=== PATIENT | male | born 1950 | race Caucasian/White ===

== ENCOUNTER → 2018-04-20 | Day surgery (SDC) | payer OTHER ==
[2018-03-16 09:52] VITALS: Ht 177.8 cm; Wt 100.0 kg
[~2018-04-20] VITALS: Ht 177.8 cm; Wt 100.0 kg
[~2018-04-20] MED LIST: 500ML BSS 0.3ML EPI 1:1000PF IRRIG ONE; ACETAMINOPHEN 325 MG TAB PO PRN; AMVISC PLUS 0.8ML SYRINGE INT OCU ONE; ASPI81TA28 PO; ATOR-24 PO; ATROPINE SULFATE 0.1 MG/ML 5ML SYR IV PRN; BSS FLUSH ONE; EpHEDrine SULFATE INJ 50 MG/ML AMP IV PRN; EpINEphrine INJ 1MG/ML AMP 1 MG/ML AMP ONE; GLC/500 PO; LACTATED RINGER'S 1000ML 500 ML IV SCH; LIDOCAINE 3.5% OPH GEL PER APPLICATION CHARGE ONE; LIDOCAINE HCL 1% MPF 2 ML VIAL ONE; LISI-729 PO; MIDAZOLAM HCL 1 MG/ML 2ML VIAL ONE; MULT-506 PO; OCUCOAT 1 ML SOLN IO ONE; OMEG10007 PO; POVIDONE-IODINE OP SOLN 30 ML BTL ONE; PROPARACAINE 0.5% OP SOLN PER DROP CHARGE OPL SCH; TOBRAMYCIN/DEXAMETHASONE OPH OINT PER APPLN CHARGE ONE; WARF5TAB7 PO
[2018-04-20] MEDS: PHENYLEPHRINE HCL 2.5% OP SOLN PER DROP CHARGE OPL SCH ×2 (11:27→11:32)
[2018-04-20] MEDS: TROPICAMIDE 1% OP SOLN PER DROP CHARGE OPL SCH ×2 (11:28→11:33)
[2018-04-20] MEDS: CYCLOPENTOLATE HCL 1% OP SOLN PER DROP CHARGE OPL SCH ×2 (11:29→11:34)
[2018-04-20] MEDS: KETOROLAC 0.5% OP SOLN PER DROP CHARGE OPL SCH ×2 (11:30→11:35)
[2018-04-20] MEDS: GATIFLOXACIN OP SOLN PER DROP CHARGE OPL SCH ×2 (11:31→11:41)
--- NOTE | 2018-04-20 11:57 | History & Physical Bridge - [place] ---
H&P Re-Evaluation Bridge Note: I have examined the patient, reviewed the History & Physical and in the interval since the performance of the History & Physical I have noted the following changes of clinical significance: Diagnosis: Left Cataract Procedure: Left Cataract Removal with Lens Implant No changes noted
--- NOTE | 2018-04-20 12:30 | [facility] Operative Report ---
Operative Report Date of Service Apr 20, 2018. Operative Report 1. PREOPERATIVE DIAGNOSIS: Cataract of the left eye. 2. POSTOPERATIVE DIAGNOSIS: Same. 3. PROCEDURE: Phacoemulsification with intraocular lens implantation of the left eye. SURGEON: Dr. Chris Laura. ANESTHESIA: Topical Lidocaine gel, 1% Non- Preserved intracameral Lidocaine, and monitored intravenous sedation. INDICATIONS FOR THE PROCEDURE: The patient is a 67 - year-old male with a history of cataract of the left eye causing significant visual impairment. The details of the proposed procedure were explained to the patient who asked appropriate questions and following discussion of all risks, benefits and alternatives agreed to have the procedure done. 4. OPERATION AND FINDINGS: DESCRIPTION OF PROCEDURE: After informed consent was obtained, the patient was brought to the Operating Room at the [facility]. The patient was placed in a supine position and then the left eye was prepped and draped in the usual sterile fashion for intraocular surgery. A drop of topical Lidocaine gel was placed in the operative eye. A wire lid speculum was then placed in the fornices. A corneal paracentesis was then created temporally. The Non-Preserved Lidocaine was then instilled into the anterior chamber. The anterior chamber was then pressurized with viscoelastic. A 2.0 mm clear corneal incision was then created temporally. A cystotome was inserted into the anterior chamber and used to create a tear in the anterior lens capsule. This capsular tear was then used to create a small flap and the flap was dragged in a counterclockwise direction in order to create a continuous curvilinear capsulorrhexis. Hydrodissection was accomplished with balanced salt solution. Phacoemulsification of the lens nucleus was then performed in a standard [id number] technique. The phaco time was 21 seconds with an average power of 15 %. The remaining cortical material was removed using irrigation aspiration. The capsular bag was then filled with viscoelastic. A [employer] MX60E +08.0 diopters lens was then loaded into the injector and injected into the capsular bag. The remaining viscoelastic was removed with the irrigation aspiration handpiece. The wound was hydrated and then checked and found to be watertight. The intraocular pressure was checked and found to be adequate. The wire lid speculum was removed and the patient's face was cleaned and dried. TobraDex ointment was placed in the inferior fornix. The patient was discharged to the Recovery Room having tolerated the procedure well. There were no complications. The patient will be seen tomorrow in the office for follow-up. I attest to the content of the Intraoperative Record and any orders documented therein. Any exceptions are noted below.
--- NOTE | 2018-04-20 12:31 | Discharge Instructions-SurgCtr ---
Discharge Instructions Date of Service Apr 20, 2018. Visit Reason for Visit: Cataract Left Eye Discharge Discharge Diagnosis / Problem: cataract Discharge Goals Goal(s): Improve function Activity Recommendations Activity Limitations: per Instructions/Follow-up section Anesthesia . Post Anesthesia Instructions: If you have had General Anesthesia or IV Sedation: * Do not drive today. * Resume driving when surgeon permits. * Do not make important decisions or sign legal documents today. * Call surgeon for: 1. Temperature elevations greater than 101 degrees F. 2. Uncontrollable pain. 3. Excessive bleeding. 4. Persistent nausea and vomiting. 5. Medication intolerance (nausea, vomiting or rash). * For nausea and vomiting use only clear liquids such as: tea, soda, bouillon until nausea subsides, then gradually increase diet as tolerated. * If you have any concerns or questions, call your surgeon's office. If physician is unavailable and it is an emergency, call 911 or go to the nearest emergency room. . Diet Recommendations Home Diet: resume previous diet Procedures Procedures Performed: Left Cataract Phacoemulsification With Intraocular Lens Implant Pending Studies Studies pending at discharge: no Medical Emergencies . Who to Call and When: Medical Emergencies: If at any time you feel your situation is an emergency, please call 911 immediately. . Non-Emergent Contact Non-Emergency issues call your: [facility] . . "Provider Documentation" section prepared by Chris Laura. .
[2018-04-20 12:46] VITALS: TEMP 36.3
[2018-04-20 13:02] VITALS: BP 129/78; PULSE 54; O2SAT 95
--- NOTE | 2018-04-20 13:06 | Anesthesia Progress Nt - [facility] ---
Anesthesia Post Op Note Date & Time Apr 20, 2018 at 13:06 Vital Signs Pain Intensity: 0 Vital Signs Past 12 Hours Date Time Temp Pulse Resp B/P (MAP) Pulse Ox O2 Delivery O2 Flow Rate FiO2 04/20/18 13:02 54 16 129/78 (95) 95 Room Air 04/20/18 12:46 36.3 65 16 118/71 (87) 94 Room Air 04/20/18 11:20 37.1 71 16 163/103 (123) 96 Room Air Notes Mental Status: alert / awake / arousable, participated in evaluation Pt Amnestic to Procedure: Yes Nausea / Vomiting: adequately controlled Pain: adequately controlled Airway Patency, RR, SpO2: stable & adequate BP & HR: stable & adequate Hydration State: stable & adequate Anesthetic Complications: no major complications apparent
== END | disposition home or self-care (01) ==
LOC: X.SURG 10:38
PROVIDERS: ATTEND Ophthalmology
DX: E11.36 Type 2 diabetes mellitus with diabetic cataract (principal); H26.9 Unspecified cataract; I10 Essential (primary) hypertension; E78.5 Hyperlipidemia, unspecified; I25.10 Atherosclerotic heart disease of native coronary artery without angina pectoris; Z68.31 Body mass index [BMI] 31.0-31.9, adult; E66.9 Obesity, unspecified; Z86.008 Personal history of in-situ neoplasm of other site; Z85.820 Personal history of malignant melanoma of skin; Z79.84 Long term (current) use of oral hypoglycemic drugs; Z79.01 Long term (current) use of anticoagulants; Z79.82 Long term (current) use of aspirin; Z79.899 Other long term (current) drug therapy; Z88.0 Allergy status to penicillin

== ENCOUNTER 2019-06-29 11:16 | Observation (INO) ==
--- NOTE | 2019-06-29 12:47 | Pre Anesthesia Assessment ---
Date of Service June 29, 2019 Pre Sedation Assessment Vital Signs Temp Pulse Resp BP Pulse Ox 06/29/19 11:53 36.8 C 65 18 141/96 H 98 Cardiovascular RRR, no murmur, no edema Respiratory normal respiratory effort, lungs clear to auscultation Pre-Sedation Airway Assessment Smoking Status: Never smoker Short, Thick Neck: No Thyromental Distance: > or= 3.5 Finger Breadths Oral Cavity: + WNL Mallampati Class: III ASA: ASA3 NPO Status Date of Last Intake of Fluids: 06/28/19 Date of Last Intake of Solid Food: 06/28/19 Procedure Planning Contraindications for Sedation: none Current Medications Reviewed: Yes Notes The planned sedation has been discussed with the patient. Informed Consent was obtained. I have identified the patient, determined the appropriateness of sedation and have assessed the patient immediately prior to the procedure. All medicine(s) and interventions are by my order.
--- NOTE | 2019-06-29 12:47 | History & Physical Bridge Note ---
Date of Service June 29, 2019 History & Physical Bridge Note I have examined the patient, reviewed the History & Physical and in the interval since the performance of the History & Physical I have noted the following changes of clinical significance: no changes noted
[2019-06-29] MEDS ORDERED: LIDOCAINE HCL 1% 20 ML VIAL ONE (13:20)
[2019-06-29] MEDS ORDERED: MIDAZOLAM HCL 5 MG/ML 1 ML VIAL ONE ×2 (13:20→15:09)
[2019-06-29] MEDS ORDERED: BACITRACIN INJ 50,000 UNIT VIAL ONE (13:20)
[2019-06-29] MEDS ORDERED: fentaNYL citrate 100 MCG/2 ML VIAL ONE ×2 (13:20→14:51)
[2019-06-29] MEDS ORDERED: BUPIVACAINE 0.25% 30 ML VIAL ONE (13:20)
[2019-06-29] MEDS ORDERED: OXYCODONE/ACETAMINOPHEN 5mg/325mg TAB PO PRN (15:52)
[2019-06-29] MEDS ORDERED: ACETAMINOPHEN 325 MG TAB PO PRN (15:52)
--- NOTE | 2019-06-29 15:57 | Post Anesthesia Assessment ---
Date of Service June 29, 2019 Post Sedation Assessment Vital Signs Temp Pulse Resp BP Pulse Ox 06/29/19 11:53 36.8 C 65 18 141/96 H 98 Recovery Score Activity: Moves 4 extremities Respiration: Deep Breath/Cough Circulation: +/-20% PreAnes Value Consciousness: Fully Awake Oxygen Saturation: > 92% On Room Air Discharge Sedation Level of Care: Fast Track Phase II Post Sedation Plan On clinical assessment, the patient appears to have tolerated the sedation without complications. Patient is recovering as anticipated. Patient will continue to be monitored by nursing and may be discharged when sedation discharge criteria are met per below protocol. Upon Completions of procedure and additional 15 minutes continue every 5 minute vital signs and the P.A.R. score; then discharge to a Phase I or Fast Track to Phase II per the following guidelines: * Discharge Patient to appropriate Phase II area if PAR is 8 or greater or return to pre- procedure baseline. The post - procedure orders will be as directed. * If PAR score is less than 8 or not return to pre-procedure baseline then patient will follow Phase I monitoring till PAR is reached for Phase II. The Phase I may be done in procedure room or may call to secure a Phase I area. * If naloxone or flumazenil are used for reversal, hold in Phase I for continued monitoring from when last reversal dose was given for a minimum of 60 minutes or longer pending the nurse and/or physician discretion of patient condition before discharge to Phase II. Please call the Sedation Physician to re-evaluate and complete post-note for discharge to Phase II area. Do NOT discharge from procedure sedation or Phase 1 until post- sedation evaluation note is complete by procedure /sedation MD Sedation Discharge Instructions to be given to the patient at discharge to home.
--- NOTE | 2019-06-29 15:58 | Operative Report ---
Post Operative Report Pre & Post Diagnosis intermittent 2:1 high degree AV block Operation Date: 06/29/19 13:00 <No data on this case meets the specified criteria> I identified the patient and participated in the time-out.: Yes Procedure His Bundle Pacemaker with EGM intracardiac mapping of HIS bundle Operation Date: 06/29/19 13:00 <No data on this case meets the specified criteria> Surgeon Maribell Patino, DO Tow Mate none Estimated Blood Loss 25 Findings Consistent with Post-Op Diagnosis Specimens none Description of Procedure see official report I attest to the content of the Intraoperative Record and any orders documented therein. Any exceptions are noted below.
[2019-06-29 17:21] LABS: Prothrombin Time 19.4 Seconds (9.0-12.0)
[2019-06-29] MEDS: LISINOPRIL 5 MG TAB PO SCH (18:07)
[2019-06-29] MEDS ORDERED: WARFARIN SOD 5 MG TAB PO SCH (19:00)
[2019-06-29] MEDS: METFORMIN HCL 500 MG TAB PO SCH (20:16)
[2019-06-30 07:07] VITALS: BP 137/89; TEMP 98.4; O2SAT 95
--- NOTE | 2019-06-30 08:03 | Discharge Summary ---
Date of Service June 30, 2019 Admission HPI Per Admitting Provider +syncope and lightheadedness with exertion Admission Exam Per Admitting Provider aaox3, NAD NC/AT, EOMI Supple No JVD Nrl S1, +S2 mechanical , +systolic murmur CTA b/l no w/r/r soft nt/nd no LE edema b/l skin intact no focal deficits Principal Diagnosis intermittent high degree AV block s/p HIS bundle ppm Discharge Exam aaox3, NAD NC/AT, EOMI Supple No JVD Nrl S1; + mechanical S2, +systolic murmur CTA b/l no w/r/r soft nt/nd no LE edema b/l skin intact no focal deficits left pectoral incision intact, no hematoma mild ecchymosis Discharge Data Allergies Allergy/AdvReac Type Severity Reaction Status Date / Time Penicillins Allergy Unknown Hives Verified 05/04/18 07:16 aspirin Allergy Difficulty Verified 06/29/19 12:25 Swallowing Procedures Performed Operation Date: 06/29/19 13:00 Actual Procedures s Bundle of his Recording - Maribell Patino DO p Pacer with A/V Leads (Dual) - Maribell Patino DO Ordered Studies ECG: CXR: leads in position; No PTX Pacemaker Interrogation: Normal lead testing since implant and stable 06/29/19 07:17 CL Cath Imgs for PACS use only Routine 06/29/19 13:30 EP Lab Images for PACS ONCE Hospital Course (1) High degree atrioventricular block: (2) S/P AVR: (3) HTN (hypertension): (4) Hyperlipemia: (5) Diabetes: Total Time Total Time Spent Total Time Spent (In Minutes): 30 Total Time Includes: Examination of the Patient, Discharge Planning, Medication Reconciliation and Other Discharge Plan Discharge Items Patient Disposition: Home - Self-Care Reason For Visit: DCP Discharge Diagnosis: high degree AV block s/p dual chamber HIS bundle ppm Activity: As commented below Activity Comment: do not lift your left elbow over the left shoulder for 1 month Lifting: No more than 10 pounds Lifting Comment: do not lift more than 10 pounds with the left arm for 2 weeks Bathing: Keep incision dry Bathing Comment: can shower fri let water run over the white dressing Sexual Activity: After two weeks Driving/Machine Use: Resume 1 day after discharge Non-emergency contact: Shop Repairer Call non-emergency contact if: you have any medication questions Follow-up/Referrals: Ginny Winkler, PAImer [Primary Care Provider] - Diet: Heart Healthy Addtl Attending Provider Instructions: if you notice any swelling or concerns at the incision site call Dr. Patino's office immediately device and wound check in [facility] next week Pending Studies at Discharge: Yes Studies:: pt needs CXR Stand-Alone Forms: My [facility] [employer], Smoking Cessation Medications and DC Order Prescriptions: Continued Fish Oil ([place]-3) 1 EA capsule 1 cap PO QAM Qty: 0 RF: 0 Lisinopril (Prinivil) 5 MG tablet 5 mg PO QAM Qty: 0 RF: 0 METFORMIN HCL (GLUCOPHAGE) 500 MG tablet 500 mg PO BID Qty: 0 RF: 0 Multivitamin tablet 1 tab PO QAM Qty: 0 RF: 0 Warfarin Sod (Jantoven) 5 MG tablet 5 mg PO QPM Qty: 0 RF: 0 ASPIRIN (ASPIRIN EC) 81 MG tablet 81 mg PO QAM Qty: 0 RF: 0 atorvastatin 20 mg Tablet 20 mg PO DAILY RF: 0 coenzyme Q10 [CoQ-10] 100 mg Capsule 100 mg PO DAILY RF: 0 Discharge Orders: Discharge Order (Routine); Ordered 06/30/19 Ordered By: Maribell Patino Admission Data Admit Date/Time: 06/29/19 15:02 Attending Provider: Maribell Patino Admit Provider: Maribell Patino Primary Care Provider: Ginny Winkler
--- NOTE | 2019-06-30 08:45 | XRay Report ---
XR chest 2V PA/lateral CLINICAL HISTORY: post ppm pacemaker placement COMPARISON STUDY: None FINDINGS: Bipolar cardiac place with leads in good position. No evidence of pneumothorax. Lungs are c lear. Prior median sternotomy. IMPRESSION: Cardiac pacemaker in good position. No evidence for pneumothorax. The above report was generated using voice recognition software. It may contain grammatical, syntax or spelling errors. Electronically signed by: Vineet Strange M.D. 06/30/2019 8:44 AM
[2019-06-30] MEDS ORDERED: NON-FORMULARY MEDICATION (Coenzyme Q10 [Coq-10] 100 MG) PO SCH (09:00)
[2019-06-30] MEDS ORDERED: ATORVASTATIN 20 MG TAB PO SCH (09:00)
[2019-06-30] MEDS ORDERED: MULTIVITAMIN TAB PO SCH (09:00)
[2019-06-30] MEDS ORDERED: ASPIRIN 81 MG ECTAB PO SCH (09:00)
[2019-06-30] MEDS ORDERED: OMEGA-3 (PURIFIED FISH OIL) 1 GM CAP PO SCH (09:00)
[2019-06-30] MEDS: LISINOPRIL 5 MG TAB PO SCH (09:40)
[2019-06-30] MEDS: METFORMIN HCL 500 MG TAB PO SCH (09:41)
[2019-06-30 09:52] VITALS: PULSE 68
--- NOTE | 2019-07-01 16:12 | Operative Report ---
DATE OF OPERATION: 06/29/2019 PREOPERATIVE DIAGNOSIS: Intermittent high-degree AV block, 2:1 AV block, symptomatic. POSTOPERATIVE DIAGNOSIS: Intermittent high-degree AV block, 2:1 AV block, symptomatic. PROCEDURE: Dual chamber rate responsive permanent pacemaker (with the RV lead over the His bundle) under fluoroscopic guidance, electrocardiographic mapping of the His bundle. SURGEON: Maribell Patino DO ASSISTANTS: None. ANESTHESIA: Monitored conscious sedation administered under my supervision by Tabatha Schmitz. Start time 1344, end time 1552. A total of 7 mg of Versed, 175 mcg of fentanyl. INTRAVENOUS FLUIDS: 69 mL. CLINDAMYCIN: 600 mL. BLOOD LOSS: 30 mL. URINE OUTPUT: Not applicable. SPECIMENS: None. FINDINGS: See below. DRAINS: None. INDICATIONS: This is a 68-year-old gentleman with a past medical history for having undergone an AVR mechanical Carbomedics #27 secondary to AI in 04/2010, coronary artery disease, mild nonobstructive disease, hypertension, hyperlipidemia, mild mitral regurgitation, mild tricuspid regurgitation, diabetes and history of malignant melanoma. He had been having dyspnea on exertion and he underwent an exercise treadmill test where he was found to have symptomatic 2:1 AV block, so he is recommended a His bundle pacemaker. CONSENT: Consent was obtained prior to the patient going into electrophysiology lab. The patient was informed of the risks, benefits and alternatives to the procedure. Risks include but not limited to sudden cardiac , cardiac arrhythmias, cerebrovascular accident, myocardial infarction, injury to the blood vessels, chamber of the heart, lung, bleeding, and infection. The patient understood these risks and agreed to the procedure as planned. Informed consent was obtained. DESCRIPTION OF THE PROCEDURE: The patient was brought into the electrophysiology lab in fasting state. He was connected to continuous playground monitor. A timeout was performed to ensure patient's identity and procedure correctly. The patient was prepped and draped over the left infraclavicular space in normal surgical standard fashion. Monitored conscious sedation was given throughout the procedure for patient's comfort level. [place] precautions maintained throughout the procedure. A 10 mL of 1% lidocaine, bupivacaine mixture were given in the left deltopectoral groove. Incision was made in left deltopectoral groove. Blunt dissection performed down to identify the cephalic vein. Cephalic vein was identified and isolated using 0 silk ties. The vein was nicked with 11 blade and a guidewire was inserted without any resistance. A 7-Beninese sheath was inserted over the guidewire without any resistance. Dilator was removed and a second guidewire was inserted through the 7-Beninese sheath to allow for retained venous access. Sheath was flushed and then dilator reinserted over the guidewire. The guidewire and dilator were removed. Then, the preformed His sheath was advanced into the right atrium over a Glidewire. The Glidewire and dilator were removed. Then, I did electrogram intracardiac mapping of the His bundle with the His lead. We found a nice His signal with an AH of 97 and HV of 74. The lead was screwed in. At one point, we did have some complete heart block, but he quickly recovered and we went on pacing very quickly. Then leaving the His sheath in place with the retained guidewire, a 7-Beninese sheath was inserted over that into the cephalic vein. The guidewire and dilator removed. The right atrial lead was then advanced into right atrium and positioned interatrial appendage. There was adequate pacing and sensing thresholds and no diaphragmatic stimulation with high output pacing. The 7-Beninese sheath for the right atrial lead was peeled away and lead was fixated to pectoralis muscle using 0 silk suture. I then went and split the His sheath under fluoroscopic guidance. Then, the 7-Beninese sheath was split and peeled away and the His lead was fixated to pectoralis muscle using 0 silk suture. A pacemaker pocket was created then using blunt dissection over the pectoralis muscle within the pectoralis fascia. I did put a 2-0 pursestring around the cephalic vein to prevent any backbleeding using a 2-[address] needle. The pocket was flushed with copious amounts of bacitracin saline wash and inspected for hemostasis. The pulse generator was then attached to the leads, making sure that the pins were in appropriate position, passed set screws and set screws were all tightened. Pulse generator was then placed in the pocket, making sure that the leads were lying flat beneath the device. The incision was then closed in. Rut stat was placed in the pocket as patient is going back on Coumadin. The incision was then closed in 3-layer fashion with 2-0 Vicryl interrupted suture, followed by 3-0 Vicryl interrupted suture, followed by 4-0 Monocryl running stitch and Dermabond was applied. Bigg and micropore dressing followed then by a pressure dressing. EQUIPMENT: 1. Pulse generator is a Medtronic Froy XT DR KENAN Helm, serial number [id number]. 2. Right atrial lead Medtronic 5076-52 cm, serial number [id number]. 3. Right ventricular lead, Medtronic 3830-69 cm, serial number [id number]. INTRAOPERATIVE TESTIN. Right atrial lead: P-wave 4.8 millivolts, impedance 559 ohms, threshold 0.4 volts at 0.8 milliseconds. 2. Right ventricular lead: R waves 2 millivolts, impedance 615 ohms, threshold 1.6 millivolts at 1 millisecond. FINAL MEASUREMENTS THROUGH THE DEVICE: 1. Right atrial lead: P waves 3.4 millivolts, impedance 437 ohms, threshold 0.5 volts at 0.4 milliseconds. 2. Right ventricular lead: R waves 1.8 millivolts, impedance 551 ohms, threshold 0.75 volts at 0.7 milliseconds. The kalispel QRS was 80 milliseconds. The HIS selected paced QRS was 89 milliseconds. The TX interval was 176 milliseconds and again his AH was 97 milliseconds, HV was 74 milliseconds. IMPRESSION: Successful implantation of a dual chamber rate responsive permanent pacemaker (His bundle) under fluoroscopic guidance secondary to intermittent complete heart block. PLAN: Monitor patient overnight. Chest x-ray, 12-lead ECG. He is not allowed to lift left elbow or left shoulder for 1 month. He cannot lift more than 10 pounds with the left arm for 2 weeks. He can shower in 2 days, let water run over the incision, do not scrub it. At that time, he can remove the pressure dressing, but he is to leave the white dressing on until wound check if possible and he can restart his Coumadin and continue his other medicines. I attest to the content of the Intraoperative Record and any orders documented therein. Any exceptions are noted below. RODRIGO
== END 2019-06-30 10:39 | disposition home or self-care (01) ==
LOC: EP 11:16 → 2E 11:16